=== PATIENT | female | born 1980 ===

== ENCOUNTER 2017-07-22 17:40 | Emergency (ER) | payer OTHER ==
[2017-07-22 18:04] VITALS: BP 145/95; PULSE 84; RESP 14; TEMP 98.4; O2SAT 99
--- NOTE | 2017-07-22 18:24 | ED PDOC ---
HPI: General Adult Time Seen by Provider: 07/22/17 18:07 Chief Complaint (Nursing): Upper Extremity Problem/Injury Chief Complaint (Provider): Neck Pain History Per: Patient, Family (Daughter acts as narrow fabric loom fixer) History/Exam Limitations: no limitations Onset/Duration Of Symptoms: Days (x2 weeks) Additional Complaint(s): Loraine Leon is a 36 year old female that presents to the ED with a chief complaint of neck pain for 1 week and difficulty sleeping for the past 2 weeks. Patient reports that she has been taking melatonin for sleep but this has not helped. She denies taking any medication for her neck pain. 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 Patient denies anxiety, depression, suicidal or homicidal ideation. PMD: none Past Medical History Reviewed: Historical Data, Nursing Documentation, Vital Signs Vital Signs: Last Vital Signs Temp 98.4 F 07/22/17 18:00 Pulse 84 07/22/17 18:00 Resp 14 07/22/17 18:00 BP 145/95 H 07/22/17 18:00 Pulse Ox 99 07/22/17 18:27 - Medical History PMH: No Chronic Diseases - Surgical History Surgical History: No Surg Hx - Family History Family History: States: No Known Family Hx - Living Arrangements Living Arrangements: With Family - Social History Current smoker - smoking cessation education provided: No Alcohol: None Drugs: Denies - Home Medications Home Medications: Ambulatory Orders Medication Instructions Recorded Amoxicillin/Clavulanate [Augmentin 1 tab PO BID #14 tab 09/17/15 875 MG-125 MG] Ketotifen Fumarate [Zaditor] 1 drop OD BID #1 bottle 09/17/15 Tobramycin 0.3% [Tobrex 0.3% Ophth 1 drop OU Q4 #1 bottle 09/17/15 Soln] Cyclobenzaprine [Cyclobenzaprine 10 mg PO TID PRN #15 tab 07/22/17 HCl] Ibuprofen [Motrin] 600 mg PO Q6 PRN #15 tab 07/22/17 - Allergies Allergies/Adverse Reactions: Allergies Allergy/AdvReac Type Severity Reaction Status Date / Time No Known Allergies Allergy Verified 09/17/15 08:52 Review of Systems ROS Statement: Except As Marked, All Systems Reviewed And Found Negative Constitutional: Negative for: Fever Cardiovascular: Negative for: Chest Pain Respiratory: Negative for: Cough Gastrointestinal: Negative for: Nausea, Vomiting Musculoskeletal: Positive for: Neck Pain Psych: Positive for: Suicidal ideation (denies suicidal or homicidal ideation), Other (insomnia for 2 weeks) Physical Exam - Reviewed Nursing Documentation Reviewed: Yes Vital Signs Reviewed: Yes - Physical Exam Appears: Positive for: Non-toxic, No Acute Distress Head Exam: Positive for: ATRAUMATIC, NORMOCEPHALIC Skin: Positive for: Normal Color, Warm Eye Exam: Positive for: Normal appearance, EOMI, PERRL Neck: Negative for: Normal (b/l tenderness to palpation paraspinal region along C-spine. No midline tenderness to palpation. No step-off. ) Neurologic/Psych: Positive for: Alert, Oriented. Negative for: Motor/Sensory Deficits - Laboratory Results Urine POC: Negative - ECG O2 Sat by Pulse Oximetry: 99 (RA) Pulse Ox Interpretation: Normal - Other Rad cervical spine x-ray X-Ray: Interpreted by Me, Viewed By Me X-Ray Interpretation: muscle spasm, no fx, no dis Medical Decision Making Medical Decision Making: Impression: 36 year old female with neck pain Plan: * X-Ray C-Spine * Ibuprofen 600 mg PO * Urine Preg Patient was instructed to try Benadryl for insomnia. Crisis evaluation declined , patient denies anxiety, depression or suicidal or homicidal ideation. Patient is aware of x-ray results, all questions answered. Motrin provided relief of pain. Prescriptions given for Motrin and Flexeril. Patient was referred to clinic for follow up. Scribe Attestation: Documented by Eveline Egan, acting as a scribe for Caron Dowling PA-C. Provider Scribe Attestation: All medical record entries made by the Scribe were at my direction and personally dictated by me. I have reviewed the chart and agree that the record accurately reflects my personal performance of the history, physical exam, medical decision making, and the department course for this patient. I have also personally directed, reviewed, and agree with the discharge instructions and disposition. Disposition - Clinical Impression Clinical Impression: Cervical sprain, Insomnia - Patient ED Disposition Is Patient to be Admitted: No Counseled Patient/Family Regarding: Studies Performed, Diagnosis, Need For Followup, Rx Given - Disposition Referrals: [facility] [Outside] Disposition: Routine/Home Disposition Time: 19:12 Condition: STABLE Additional Instructions: Take prescription medications as directed. Try benadryl over the counter before bed to help with sleep. Follow-up with clinic in 2-3 days. Prescriptions: Cyclobenzaprine [Cyclobenzaprine HCl] 10 mg PO TID PRN #15 tab PRN Reason: Muscle Pain Ibuprofen [Motrin] 600 mg PO Q6 PRN #15 tab PRN Reason: Pain, Moderate (4-7) Instructions: Cervical Muscle Strain, Insomnia, Tips for Getting Better Sleep Forms: [employer] (Greek) Print Language: BRAZILIAN
--- NOTE | 2017-07-23 11:09 | RAD ---
PROCEDURE: Cervical Spine Radiographs. HISTORY: Pain. COMPARISON: None. FINDINGS: BONES: There is normal alignment of the cervical vertebral bodies. There is straightening of the cervical spine with loss of normal cervical lordosis. Vertebral height is normal. There is no acute fracture or spondylolisthesis. The craniocervical junction is normal. The atlantoaxial joints are normal. DISC SPACES: The disc heights are maintained. SOFT TISSUES: Normal. No prevertebral soft tissue swelling. OTHER FINDINGS: None. IMPRESSION: No acute fracture, spondylolisthesis or significant degenerative disc disease.
== END 2017-07-22 19:34 | disposition home or self-care (01) ==
LOC: H.ER 17:40
DX: M54.2 Cervicalgia (principal); G47.00 Insomnia, unspecified